=== PATIENT | male | born 1980 | race Caucasian/White ===

== ENCOUNTER 2018-08-02 18:53 | Emergency (ER) | payer SELFPAY ==
[~2018-08-02] VITALS: Ht 167.6 cm; Wt 63.5 kg
[2018-08-02] MEDS ORDERED: IV NORMAL SALINE 1000ML BAG 1,000 ML IV ONE ×2 (19:15→21:00)
[2018-08-02 19:38] LABS: BASO % 0 % (0-3); EOS % 1 % (0-3); HEMATOCRIT 44.8 % (39.0-53.0); HEMOGLOBIN 15.7 g/dL (13.0-17.5); LYMPH # 2.1 x10^3/uL (1.0-4.8); LYMPH % 33 % (24-48); MEAN CORPUSCULAR HEMOGLOBIN 33 pg (25-35); MEAN CORPUSCULAR HGB CONC 35 g/dL (31-37); MEAN CORPUSCULAR VOLUME 94 fL (79-100); MONO # 0.4 x10^3/uL (0.0-1.1); MONO % 6 % (0-9); NEUT # 3.7 x10^3uL (1.8-7.7); NEUT % 60 % (31-73); PLATELET COUNT 257 x10^3/uL (140-400); RED BLOOD COUNT 4.75 x10^6/uL (4.30-5.70); WHITE BLOOD COUNT 6.3 x10^3/uL (4.0-11.0)
[2018-08-02 19:45] LABS: CALCIUM 9.2 mg/dL (8.5-10.1); CREATININE 0.7 mg/dL (0.7-1.3); GFR 125.5
[2018-08-02 19:51] LABS: ALBUMIN 4.4 g/dL (3.4-5.0); ALBUMIN/GLOBULIN RATIO 1.3 (1.0-1.7); MAGNESIUM 2.1 mg/dL (1.8-2.4); TOTAL BILIRUBIN 0.4 mg/dL (0.2-1.0); TOTAL PROTEIN 7.9 g/dL (6.4-8.2)
--- NOTE | 2018-08-02 20:18 | EKG ---
[facility] [address] [place] [address] Test Date: 2018-08-02 Test Time: 19:23:15 Pat Name: AKIKO COLÓN Department: Room: Gender: M [employer]: : 1980 Requested By: DELORES HUGHES Order Number: [id number] Reading MD: Lucio Rodriguez MD Measurements Intervals [place] Rate: 85 P: 49 [place]: 148 QRS: 68 QRSD: 86 T: 67 QT: 344 QTc: 410 Interpretive Statements SINUS RHYTHM Electronically Signed On 08-04-2018 9:05:43 CDT by Lucio Rodriguez MD
[2018-08-02 20:45] LABS: BILIRUBIN,URINE NEGATIVE (NEG); CLARITY,URINE CLEAR; COLOR,URINE YELLOW; NITRITE,URINE NEGATIVE (NEG); PROTEIN,URINE NEGATIVE (NEG-TRACE); UROBILINOGEN,URINE 0.2 mg/dL (0.2 mg/dL)
[2018-08-02 20:55] LABS: BACTERIA,URINE 0 /HPF (0-FEW); RBC,URINE OCC /HPF (0-2); SQUAMOUS EPITHELIAL CELL,UR OCC /LPF; WBC,URINE OCC /HPF (0-4)
[2018-08-02 20:58] LABS: BARBITURATES NEG (NEG); BENZODIAZEPINES NEG (NEG); CANNABINOIDS NEG (NEG); COCAINE NEG (NEG); METHADONE NEG (NEG); OPIATES NEG (NEG); PHENCYCLIDINE NEG (NEG)
[2018-08-02 20:59] LABS: AMPHETAMINE/METHAMPHETAMINE NEG (NEG)
[2018-08-02 21:00] VITALS: BP 119/67
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
== END 2018-08-02 21:37 | disposition home or self-care (01) ==
LOC: EDBD 18:53 → ER 18:53
DX: F10.129 Alcohol abuse with intoxication, unspecified (principal); F41.9 Anxiety disorder, unspecified; Y90.8 Blood alcohol level of 240 mg/100 ml or more
CPT/HCPCS: 36415; 80053; 80307; 81001; 82150; 83690; 83735; 85025; 93005; 99285; G0480; J7030; G0479